=== PATIENT | female | born 1990 | race Caucasian/White ===

== ENCOUNTER 2019-04-26 12:20 | Emergency (ER) | payer SELFPAY ==
[~2019-04-26] VITALS: Ht 162.6 cm; Wt 56.7 kg
[2019-04-26] MEDS: IV NORMAL SALINE 500ML 500 ML IV SCH (12:45)
--- NOTE | 2019-04-26 12:55 | PHYS DOC ---
Past History Past Medical History: Hypothyroid (Bud's thyroiditis) Past Surgical History: (2) Smoking: Non-smoker Alcohol Use: None Drug Use: None Adult General Chief Complaint Chief Complaint: VAGINAL BLEEDING HPI HPI Patient is a 28-year-old female presents with vaginal bleeding that started approximately 45 minutes prior to arrival. She reports being approximately 12 weeks , she is 4 P 2011 with one elective termination and 2 C-sections. This is her second episode of vaginal bleeding this . She was evaluated at [place] approximately 2 weeks ago for a similar issue. Also noted to have a urinary tract infection at that time. Patient has been taking the antibiotics intermittently with her most recent dose of antibiotics being an hour prior to this onset of bleeding. Diagnosed with bacterial vaginosis and not given any treatment for that. She denies passing any tissue or clots. She has not seen her primary care/QUALITY ASSURANCE MONITOR physician since the vaginal bleeding episode. Nothing makes the symptoms better or worse.[] Review of Systems Review of Systems Constitutional: Denies fever or chills [] Eyes: Denies change in visual acuity, redness, or eye pain [] HENT: Denies nasal congestion or sore throat [] Respiratory: Denies cough or shortness of breath [] Cardiovascular: No chest pain or palpitations[] GI: Denies abdominal pain, nausea, vomiting, bloody stools or diarrhea [] : Denies dysuria or hematuria, see history of present illness [] Musculoskeletal: Denies back pain or joint pain [] Integument: Denies rash or skin lesions [] Neurologic: Denies headache, focal weakness or sensory changes [] Endocrine: Denies polyuria or polydipsia [] All other systems were reviewed and found to be within normal limits, except as documented in this note. Current Medications Current Medications Current Medications Medications (Trade) Dose Ordered Sig/Konrad Start Time Stop Time Status Last Admin Dose Admin Sodium Chloride 500 ml @ 500 mls/hr Q1H 04/26/19 12:45 UNV Physical Exam Physical Exam Constitutional: Well developed, well nourished, no acute distress, non-toxic appearance. [] HENT: Normocephalic, atraumatic, bilateral external ears normal, oropharynx moist, no oral exudates, nose normal. [] Eyes: PERRLA, EOMI, conjunctiva normal, no discharge. [] Neck: Normal range of motion, no tenderness, supple, no stridor. [] Cardiovascular:Heart rate regular rhythm, no murmur [] Lungs & Thorax: Bilateral breath sounds clear to auscultation [] Abdomen: Bowel sounds normal, soft, no tenderness, no masses, no pulsatile masses. exam performed with public works laborer: External genitalia: Urethra, [place]'s glands, and : Denies R all normal. Vaginal vault: Blood in the vault, no other discharge noted, no lacerations noted. Cervix: Nulliparous os, blood from the os, no cervical motion tenderness, closed[] Skin: Warm, dry, no erythema, no rash. [] Back: No tenderness, no CVA tenderness. [] Extremities: No tenderness, no cyanosis, no clubbing, ROM intact, no edema. [] Neurologic: Alert and oriented X 3, normal motor function, normal sensory function, no focal deficits noted. [] Psychologic: Affect normal, judgement normal, mood normal. [] Current Patient Data Vital Signs Vital Signs Date Time Temp Pulse Resp B/P (MAP) Pulse Ox O2 Delivery O2 Flow Rate FiO2 04/26/19 12:45 97.9 72 16 95/58 (70) 72 Room Air EKG EKG [] Radiology/Procedures Radiology/Procedures PROCEDURE: OB > 14 WKS W/TV Examination: OB > 14 WKS W/TV History: Vaginal bleeding. . Comparison/Correlation: None FINDINGS: Single living intrauterine gestation with breech lie is present. heart rate is 152 bpm. Uterus measures 12.5 cm x 9.4 cm x 8.3 cm. Cervical length is 4.6 cm normal amount of amniotic fluid is identified. Large subchorionic hemorrhage is present along the anterior aspect of the gestational sac with hypoechoic hemorrhage noted. measurements include: Biparietal diameter: 1.9 cm corresponding to 13 weeks 0 days. Femur length of 0.53 cm Head circumference of 7.07 cm corresponding to 12 weeks 6 days. Abdominal circumference of 5.8 cm corresponding to 12 weeks 4 days. Average ultrasound age corresponds to 12 weeks 6 days. EDC by average age is 11/02/2019. Gestational age by last menstrual period is 11 weeks 4 days. Cephalic index of 82.5. H/A ratio is 1.2. FL/BPD is 27.7. FL/ AC is 10.1. IMPRESSION: Single living intrauterine gestation with age by ultrasound corresponding to 12 weeks 6 days. This is 1 week 2 days greater than expected by last menstrual period. Breech lie. Large subchorionic hemorrhage.[] Course & Med Decision Making Course & Med Decision Making Pertinent Labs and Imaging studies reviewed. (See chart for details) ED course: Patient arrived, was placed in bed, and tolerated exam well. She was transferred to and from [facility] with any complications. Findings were discussed with the patient who voiced understanding. All questions were answered. Discussed her care with her QUALITY ASSURANCE MONITOR, Dr. Lozano, she has an appointment at 1400 tomorrow. She was discharged in improved condition. Medical decision makin-year-old female 4 PE to012 with what appears to be a threatened miscarriage given the subchorionic hemorrhage. No evidence of septic miscarriage, no evidence of missed miscarriage. No evidence of significant electrolyte abnormality. She received a dose of Rh immunoglobulin approximately 2 weeks ago when she had her last bleeding. Half life for Rh immunoglobulin is 28 days, she does not need another dose at this time.[] Dragon Disclaimer Dragon Disclaimer This electronic medical record was generated, in whole or in part, using a voice recognition dictation system. Departure Departure: Impression: Primary Impression: Threatened miscarriage Disposition: HOME, SELF-CARE Condition: IMPROVED Patient Instructions: Threatened Miscarriage Additional Instructions: Keep your appointment with Dr. Torres as scheduled tomorrow. Nothing in the vaginano tampons, no douching, no sexual intercourse until cleared by your QUALITY ASSURANCE MONITOR. Return to the ER if worsening pain, passing tissue, bleeding more than a pad an hour for 3 consecutive hours, or any other concerns. SIGRID ROB DO Apr 26, 2019 12:55
[2019-04-26 13:01] VITALS: BP 113/52
[2019-04-26 13:07] LABS: BASO # 0.1 x10^3/uL (0.0-0.2); BASO % 1 % (0-3); EOS # 0.2 x10^3/uL (0.0-0.7); EOS % 2 % (0-3); HEMATOCRIT 40.4 % (36.0-47.0); HEMOGLOBIN 13.8 g/dL (12.0-15.5); LYMPH # 2.5 x10^3/uL (1.0-4.8); LYMPH % 27 % (24-48); MEAN CORPUSCULAR HEMOGLOBIN 34 pg (25-35); MEAN CORPUSCULAR HGB CONC 34 g/dL (31-37); MEAN CORPUSCULAR VOLUME 99 fL (79-100); MONO # 0.7 x10^3/uL (0.0-1.1); MONO % 7 % (0-9); NEUT # 5.9 x10^3uL (1.8-7.7); NEUT % 63 % (31-73); PLATELET COUNT 209 x10^3/uL (140-400); RED BLOOD COUNT 4.09 x10^6/uL (3.50-5.40); RED CELL DISTRIBUTION WIDTH 12.5 % (11.5-14.5); WHITE BLOOD COUNT 9.4 x10^3/uL (4.0-11.0)
[2019-04-26 13:16] LABS: ALBUMIN 3.8 g/dL (3.4-5.0); ALBUMIN/GLOBULIN RATIO 1.3 (1.0-1.7); CALCIUM 8.8 mg/dL (8.5-10.1); CREATININE 0.6 mg/dL (0.6-1.0); GFR 120.8; POTASSIUM 3.7 mmol/L (3.5-5.1); TOTAL BILIRUBIN 0.4 mg/dL (0.2-1.0); TOTAL PROTEIN 6.8 g/dL (6.4-8.2)
--- NOTE | 2019-04-26 13:51 | RAD ---
Examination: OB > 14 WKS W/TV History: Vaginal bleeding. . Comparison/Correlation: None FINDINGS: Single living intrauterine gestation with breech lie is present. heart rate is 152 bpm. Uterus measures 12.5 cm x 9.4 cm x 8.3 cm. Cervical length is 4.6 cm normal amount of amniotic fluid is identified. Large subchorionic hemorrhage is present along the anterior aspect of the gestational sac with hypoechoic hemorrhage noted. measurements include: Biparietal diameter: 1.9 cm corresponding to 13 weeks 0 days. Femur length of 0.53 cm Head circumference of 7.07 cm corresponding to 12 weeks 6 days. Abdominal circumference of 5.8 cm corresponding to 12 weeks 4 days. Average ultrasound age corresponds to 12 weeks 6 days. EDC by average age is 11/02/2019. Gestational age by last menstrual period is 11 weeks 4 days. Cephalic index of 82.5. H/A ratio is 1.2. FL/BPD is 27.7. FL/ AC is 10.1. IMPRESSION: Single living intrauterine gestation with age by ultrasound corresponding to 12 weeks 6 days. This is 1 week 2 days greater than expected by last menstrual period. Breech lie. Large subchorionic hemorrhage. Electronically signed by: Robby Whyte MD (04/26/2019 1:48 PM) [id number]
[2019-04-26 14:45] LABS: BILIRUBIN,URINE NEG (NEG); CLARITY,URINE CLEAR; COLOR,URINE YELLOW; GLUCOSE,URINE NEG (NEG); NITRITE,URINE NEG (NEG); UROBILINOGEN,URINE 0.2 mg/dL (0.2 mg/dL)
[2019-04-26 14:46] LABS: BACTERIA,URINE 0 /HPF (0-FEW); SQUAMOUS EPITHELIAL CELL,UR OCC /LPF
== END 2019-04-26 15:15 | disposition home or self-care (01) ==
LOC: ER 12:20
DX: O20.0 Threatened abortion (principal); O23.41 Unspecified infection of urinary tract in pregnancy, first trimester; O99.281 Endocrine, nutritional and metabolic diseases complicating pregnancy, first trimester; E03.9 Hypothyroidism, unspecified; Z3A.12 12 weeks gestation of pregnancy
CPT/HCPCS: 36415; 76805; 76817; 80053; 81001; 84702; 85025; 86900; 86901; 87491; 87591; 99285; J7040; Q0111

== ENCOUNTER 2020-04-14 22:23 | Emergency (ER) | payer BC ==
[~2020-04-14] VITALS: Ht 162.6 cm; Wt 56.8 kg
[2020-04-14] MEDS ORDERED: ONDANSETRON PF 4 MG/2 ML VIAL. IVP ONE (22:45)
--- NOTE | 2020-04-14 22:57 | PHYS DOC ---
Past History Past Medical History: Hypothyroid Past Surgical History: Smoking: Non-smoker Alcohol Use: None Drug Use: None General Adult EDM: Chief Complaint: NAUSEA/VOMITING/DIARRHEA HPI: HPI: Patient is a 29 year old female who presents for evaluation of recurrent episodes of nausea vomiting and diarrhea. Symptoms been progressing with the past 1 day. Patient has some generalized abdominal cramping and discomfort. She did have chills at home as well as hot and cold flashes. 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 She does not have any cough or other similar respiratory symptoms. She is a mild to moderate distress on arrival. Patient denies any black, bloody or tarry stools Review of Systems: Review of Systems: Constitutional: Denies fever or chills Eyes: Denies change in visual acuity HENT: Denies nasal congestion or sore throat Respiratory: Denies cough or shortness of breath Cardiovascular: Denies chest pain or edema GI: has abdominal pain with nausea, vomiting, and diarrhea no bloody stools : Denies dysuria Musculoskeletal: Denies back pain or joint pain Integument: Denies rash Neurologic: Denies headache, focal weakness or sensory changes Endocrine: Denies polyuria or polydipsia Lymphatic: Denies swollen glands Psychiatric: Denies depression or anxiety Heart Score: Risk Factors: Risk Factors: DM, Current or recent (<one month) smoker, HTN, HLP, family history of CAD, obesity. Risk Scores: Score 0 - 3: 2.5% MACE over next 6 weeks - Discharge Home Score 4 - 6: 20.3% MACE over next 6 weeks - Admit for Clinical Observation Score 7 - 10: 72.7% MACE over next 6 weeks - Early Invasive Strategies Current Medications: Current Meds: Current Medications Medications (Trade) Dose Ordered Sig/Konrad Start Time Stop Time Status Last Admin Dose Admin Ondansetron HCl (Zofran) 4 mg 1X ONCE 04/14/20 22:45 04/14/20 22:46 DC Allergies: Allergies: Allergies Coded Allergies Type Severity Reaction Last Updated Verified No Known Drug Allergies 04/26/19 No Physical Exam: PE: Constitutional: Well developed, well nourished, mild to moderate acute distress. [] HENT: Normocephalic, atraumatic, bilateral external ears normal, oropharynx moist, no oral exudates, nose normal. [] Eyes: PERRL, EOMI, conjunctiva normal, no discharge. [] Neck: Normal range of motion, no tenderness. [] Cardiovascular:Heart rate regular rhythm, no murmur [] Lungs & Thorax: Bilateral breath sounds clear to auscultation [] Abdomen: Bowel sounds normal, soft, minimal generalized tenderness. [] Skin: Warm, dry, no erythema, no rash. [] Back: No tenderness. [] Extremities: No tenderness, no cyanosis, ROM intact, no edema. [] Neurologic: Alert and oriented X 3, normal motor function, normal sensory function, no focal deficits noted. [] Psychologic: Affect normal, judgement normal, mood anxious [] Current Patient Data: Labs: Laboratory Tests Test 04/14/20 22:58 04/14/20 23:00 Urine Collection Type Unknown Urine Color Carley Urine Clarity Hazy Urine pH 6.0 Urine Specific [place] >=1.030 Urine Protein Trace Urine Glucose (UA) Neg mg/dL Urine Ketones (Stick) 15 mg/dL Urine Blood Neg Urine Nitrite Neg Urine Bilirubin Neg Urine Urobilinogen Dipstick 0.2 mg/dL Urine Leukocyte Esterase Neg Urine RBC 0 /HPF Urine WBC Occ /HPF Urine Squamous Epithelial Cells Few /LPF Urine Bacteria Few /HPF Urine Mucus Slight /LPF White Blood Count 13.4 x10^3/uL Red Blood Count 4.42 x10^6/uL Hemoglobin 15.1 g/dL Hematocrit 44.5 % Mean Corpuscular Volume 101 fL Mean Corpuscular Hemoglobin 34 pg Mean Corpuscular Hemoglobin Concent 34 g/dL Red Cell Distribution Width 13.8 % Platelet Count 215 x10^3/uL Neutrophils (%) (Auto) 75 % Lymphocytes (%) (Auto) 13 % Monocytes (%) (Auto) 8 % Eosinophils (%) (Auto) 2 % Basophils (%) (Auto) 1 % Neutrophils # (Auto) 10.0 x10^3uL Lymphocytes # (Auto) 1.8 x10^3/uL Monocytes # (Auto) 1.1 x10^3/uL Eosinophils # (Auto) 0.3 x10^3/uL Basophils # (Auto) 0.1 x10^3/uL Sodium Level 139 mmol/L Potassium Level 3.5 mmol/L Chloride Level 101 mmol/L Carbon Dioxide Level 27 mmol/L Anion Gap 11 Blood Urea Nitrogen 15 mg/dL Creatinine 1.0 mg/dL Estimated GFR (Cockcroft-Gault) 66.5 BUN/Creatinine Ratio 15 Glucose Level 100 mg/dL Calcium Level 9.5 mg/dL Total Bilirubin 0.5 mg/dL Aspartate Amino Transf (AST/SGOT) 14 U/L Alanine Aminotransferase (ALT/SGPT) 24 U/L Alkaline Phosphatase 42 U/L Total Protein 7.8 g/dL Albumin 4.8 g/dL Albumin/Globulin Ratio 1.6 Lipase 109 U/L Serum Test, Qualitative Negative Current Medications Medications (Trade) Dose Ordered Sig/Konrad Route PRN Reason Start Time Stop Time Status Last Admin Dose Admin Ondansetron HCl (Zofran) 4 mg 1X ONCE IVP 04/14/20 22:45 04/14/20 22:46 DC 04/14/20 23:05 Iohexol (Omnipaque 300 Mg/ml) 75 ml 1X ONCE IV 04/14/20 23:45 04/14/20 23:46 UNV EKG: EKG: [] Radiology/Procedures: Radiology/Procedures: [place] [address] IMAGING REPORT Signed PATIENT: SHRUTHI CLEMENT ACCOUNT: [id number] : 1990 LOCATION: ER AGE: 29 SEX: F EXAM STATUS: REG ER ORD. PHYSICIAN: AMADO JORDAN DO REASON: abd pain, leukocytosis, N/V/D, OMNI 300, 75ml PROCEDURE: CT ABD PELV W/ IV CONTRST ONLY CT scan of the abdomen and pelvis with contrast 04/15/2020 CLINICAL HISTORY: Abdominal pain and leukocytosis. TECHNIQUE: After the intravenous administration of 75 cc of Omnipaque 300, contiguous, 5 mm axial sections were obtained through the abdomen and pelvis. One or more of the following individualized dose reduction techniques were utilized for this study: 1. Automated exposure control. 2. Adjustment of the mA and/or kV according to patient size. 3. Use of iterative reconstruction technique. FINDINGS: Images through the lung bases are within normal limits. The liver, spleen, pancreas, adrenal glands and kidneys are within normal limits. The abdominal aorta tapers normally. The gallbladder is contracted. No free fluid or free air is seen within the abdomen. There is no evidence of bowel obstruction. The appendix is well-visualized and is within normal limits. Images through the pelvis demonstrate the urinary bladder distended with urine. A 1.8 cm collapsing follicle is seen involving the right ovary. A 2.1 cm follicle is seen involving the left ovary. A small amount of free fluid is seen within the pelvis. A punctate calcification is seen within the pelvis consistent with a phlebolith. Minimal S-shaped curvature of the thoracolumbar spine is seen. IMPRESSION: Follicles are seen involving both ovaries, left greater than right. A small amount of free fluid is seen within the pelvis. No additional acute abnormality is seen. Electronically signed by: Bret Kirby MD (04/15/2020 1:01 AM) [id number] DICTATED AND SIGNED BY: BRET KIRBY MD DATE: 04/15/20100 CC: AMADO JORDAN DO; NIKKI DEL CASTILLO ~ [] Course & Med Decision Making: Course & Med Decision Making Pertinent Labs and Imaging studies reviewed. (See chart for details) [] Dragon Disclaimer: Dragon Disclaimer: This electronic medical record was generated, in whole or in part, using a voice recognition dictation system. 2345 stable, pain is more controlled at this time. Nausea is improved as well. In light of the leukocytosis and diffuse pain and diarrhea a CT scan abdomen pelvis was ordered with IV contrast. Differential diagnosis includes colitis versus other potential infectious cause of diarrhea 0114 stable, feeling much better at this time. No current complaints of abdominal pain. CT scan abdomen pelvis was unremarkable. Patient has an incidental finding of some ovarian follicles. Supportive care recommended. Patient has not had bloody diarrhea. No indication for antibiotics at this time Departure Departure: Impression: Primary Impression: Gastroenteritis Additional Impression: Dehydration Disposition: HOME/RESIDENCE PRIOR TO ADM Condition: STABLE Referrals: NIKKI DEL CASTILLO (PCP) Patient Instructions: Diarrhea, Nausea and Vomiting Additional Instructions: Drink plenty fluids, rest, take medication as directed, return if fever develops, bloody diarrhea etc. Scripts Ondansetron Hcl (ZOFRAN) 4 Mg Tablet 1 TAB PO PRN Q6HRS PRN for NAUSEA, #10 TAB Prov: AMADO JORDAN DO 04/15/20 Justification of Admission: Justification of Admission: Justification of Admission Dx: N/A AMADO JORDAN DO Apr 14, 2020 22:57
[2020-04-14 23:24] LABS: BASO # 0.1 x10^3/uL (0.0-0.2); BASO % 1 % (0-3); EOS # 0.3 x10^3/uL (0.0-0.7); EOS % 2 % (0-3); HEMATOCRIT 44.5 % (36.0-47.0); HEMOGLOBIN 15.1 g/dL (12.0-15.5); LYMPH # 1.8 x10^3/uL (1.0-4.8); LYMPH % 13 % (24-48); MEAN CORPUSCULAR HEMOGLOBIN 34 pg (25-35); MEAN CORPUSCULAR HGB CONC 34 g/dL (31-37); MEAN CORPUSCULAR VOLUME 101 fL (79-100); MONO # 1.1 x10^3/uL (0.0-1.1); MONO % 8 % (0-9); NEUT % 75 % (31-73); PLATELET COUNT 215 x10^3/uL (140-400); RED BLOOD COUNT 4.42 x10^6/uL (3.50-5.40); RED CELL DISTRIBUTION WIDTH 13.8 % (11.5-14.5); WHITE BLOOD COUNT 13.4 x10^3/uL (4.0-11.0)
[2020-04-14 23:30] LABS: CALCIUM 9.5 mg/dL (8.5-10.1); GFR 66.5; POTASSIUM 3.5 mmol/L (3.5-5.1)
[2020-04-14 23:34] LABS: BACTERIA,URINE FEW /HPF (0-FEW); BILIRUBIN,URINE NEG (NEG); CLARITY,URINE HAZY; COLOR,URINE AMBER; GLUCOSE,URINE NEG (NEG); NITRITE,URINE NEG (NEG); RBC,URINE 0 /HPF (0-2); UROBILINOGEN,URINE 0.2 mg/dL (0.2 mg/dL); WBC,URINE OCC /HPF (0-4)
[2020-04-14 23:35] LABS: SQUAMOUS EPITHELIAL CELL,UR FEW /LPF
[2020-04-14 23:36] LABS: ALBUMIN 4.8 g/dL (3.4-5.0); ALBUMIN/GLOBULIN RATIO 1.6 (1.0-1.7); TOTAL BILIRUBIN 0.5 mg/dL (0.2-1.0); TOTAL PROTEIN 7.8 g/dL (6.4-8.2)
[2020-04-14 23:50] LABS: PREG TEST PT QUAL NEGATIVE (NEG)
[2020-04-15] MEDS ORDERED: IOHEXOL 300 MG/ML 75 ML VIAL. IV ONE (01:00)
--- NOTE | 2020-04-15 01:07 | RAD ---
CT scan of the abdomen and pelvis with contrast 04/15/2020 CLINICAL HISTORY: Abdominal pain and leukocytosis. TECHNIQUE: After the intravenous administration of 75 cc of Omnipaque 300, contiguous, 5 mm axial sections were obtained through the abdomen and pelvis. One or more of the following individualized dose reduction techniques were utilized for this study: 1. Automated exposure control. 2. Adjustment of the mA and/or kV according to patient size. 3. Use of iterative reconstruction technique. FINDINGS: Images through the lung bases are within normal limits. The liver, spleen, pancreas, adrenal glands and kidneys are within normal limits. The abdominal aorta tapers normally. The gallbladder is contracted. No free fluid or free air is seen within the abdomen. There is no evidence of bowel obstruction. The appendix is well-visualized and is within normal limits. Images through the pelvis demonstrate the urinary bladder distended with urine. A 1.8 cm collapsing follicle is seen involving the right ovary. A 2.1 cm follicle is seen involving the left ovary. A small amount of free fluid is seen within the pelvis. A punctate calcification is seen within the pelvis consistent with a phlebolith. Minimal S-shaped curvature of the thoracolumbar spine is seen. IMPRESSION: Follicles are seen involving both ovaries, left greater than right. A small amount of free fluid is seen within the pelvis. No additional acute abnormality is seen. Electronically signed by: Bret Kirby MD (04/15/2020 1:01 AM) [id number]
[2020-04-15] MEDS ORDERED: CONTRAST GIVEN MC PRN (01:15)
[2020-04-15] MEDS ORDERED: ONDA4TAB7 PO (01:16)
[2020-04-15 01:35] VITALS: BP 106/68
== END 2020-04-15 01:39 | disposition home or self-care (01) ==
LOC: ER 22:23
DX: K52.9 Noninfective gastroenteritis and colitis, unspecified (principal); E86.0 Dehydration; R11.2 Nausea with vomiting, unspecified; R10.84 Generalized abdominal pain; E03.9 Hypothyroidism, unspecified; Z98.890 Other specified postprocedural states
CPT/HCPCS: 36415; 74177; 80053; 81001; 83690; 84703; 85025; 96374; 99285; J2405; Q9967

== ENCOUNTER 2021-06-22 00:44 | Emergency (ER) | payer BC ==
[~2021-06-22] VITALS: Ht 162.6 cm; Wt 65.1 kg
[~2021-06-22 00:44] MED LIST: ONDA4TAB7 PO
--- NOTE | 2021-06-22 01:08 | PHYS DOC ---
Past History Past Medical History: Hypothyroid, Other Additional Past Medical Histor: hashimotos disease Past Surgical History: Smoking: Non-smoker Alcohol Use: Occasionally Drug Use: None Adult General Chief Complaint Chief Complaint: VAGINAL BLEEDING HPI HPI Patient is a 30-year-old female, G4, P5 at 10 weeks, with a history of multiple C-sections and a who presents to the emergency department with a chief complaint of vaginal bleeding. States it started yesterday, is bright red but light and is there when she wipes. Denies any abdominal cramping, pain, nausea, vomiting. Denies any dysuria, hematuria or blood in the stool. Denies any vaginal discharge/fluid loss, genital lesions or history of STIs. States she has had an ultrasound a few weeks ago which was normal. Denies recent traumas, travels, illnesses, fevers, chest pain, shortness of breath. States he is eating and drinking normally for her. States he is making urine and stool normally for her. Review of Systems Review of Systems Review of systems otherwise unremarkable except noted in HPI Allergies Allergies Allergies Coded Allergies Type Severity Reaction Last Updated Verified No Known Drug Allergies 04/26/19 No Physical Exam Physical Exam Constitutional: Well developed, well nourished, no acute distress, non-toxic appearance. [] HENT: Normocephalic, atraumatic, bilateral external ears normal, oropharynx moist, no oral exudates, nose normal. [] Eyes: conjunctiva normal, no discharge. [] Neck: Normal range of motion, no tenderness, supple, no stridor. [] Cardiovascular:Heart rate regular rhythm, no murmur [] Lungs & Thorax: Bilateral breath sounds clear to auscultation [] Abdomen: soft, no tenderness, no masses, no pulsatile masses. : No obvious lesions or injuries on outer labia, no vaginal tenderness on digital exam, no blood in the vagina or vaginal vault, no cervical motion tenderness, cervix is closed [] Skin: Warm, dry, no erythema, no rash. [] Back: no CVA tenderness. [] Extremities: No tenderness, no cyanosis, no clubbing, ROM intact, no edema. [] Neurologic: Alert and oriented X 3, normal motor function, normal sensory function, no focal deficits noted. [] Psychologic: Affect normal, judgement normal, mood normal. [] EKG EKG [] Radiology/Procedures Radiology/Procedures [] Heart Score C/O Chest Pain: No Risk Factors: Risk Factors: DM, Current or recent (<one month) smoker, HTN, HLP, family history of CAD, obesity. Risk Scores: Risk Factors: DM, Current or recent (<one month) smoker, HTN, HLP, family history of CAD, obesity. Course & Med Decision Making Course & Med Decision Making Patient is a 30-year-old female, at 10 weeks who presents with vaginal bleeding Vital signs not concerning. Physical exam noted above. Cervix closed. hCG less than 3000 which is low for someone at 8 to 10 weeks Ultrasound shows no heart tones consistent with demise. Discussed all findings with family. Called patient's PIPELINE ENGINEER to make them aware of findings. Patient is PIPELINE ENGINEER wanted us to relay that they want to see her first thing in the morning and for her to call them and/or come in as soon as they open. Patient declined RhoGam, stating she will do it in the morning when she gets to her PIPELINE ENGINEER. Gave return precautions to the ED. Patient grateful, verbalized understanding and agreed with plan of discharge. Dragon Disclaimer Dragon Disclaimer This electronic medical record was generated, in whole or in part, using a voice recognition dictation system. Departure Departure: Impression: Primary Impression: Vaginal bleeding affecting early Disposition: 01 HOME / SELF CARE / HOMELESS Condition: STABLE Referrals: NIKKI DEL CASTILLO (PCP) Patient Instructions: Vaginal Bleeding During , First Trimester Additional Instructions: Thank you for coming into the emergency department tonight and allowing us to take care of you. Please read the attached information. As we discussed, we called and talked to to Dr. Berumen who is a partner of your PIPELINE ENGINEER Dr. Mooney and made them aware of what was going on and they would like to see you in the morning in the clinic. Please be sure to call them or go by first thing in the morning when they open to discuss your ED visit, your ultrasound and need for repeat ultrasound or further evaluation and treatment. As we discussed please come back to the emergency department immediately with new or concerning symptoms. You chose to hold on the RhoGam here in stated you would prefer to get it in the morning when you see your PIPELINE ENGINEER. AMADO CHERRY MD Jun 22, 2021 01:08
[2021-06-22 02:02] LABS: CLARITY,URINE CLEAR; COLOR,URINE YELLOW
[2021-06-22 02:03] LABS: BACTERIA,URINE 0 /HPF (0-FEW); BILIRUBIN,URINE NEG (NEG); GLUCOSE,URINE NEG (NEG); NITRITE,URINE NEG (NEG); RBC,URINE OCC /HPF (0-2); SQUAMOUS EPITHELIAL CELL,UR FEW /LPF; UROBILINOGEN,URINE 0.2 mg/dL (0.2 mg/dL); WBC,URINE OCC /HPF (0-4)
[2021-06-22 02:04] LABS: AMORPHOUS SEDIMENT,UR PRESENT /HPF
[2021-06-22] MEDS ORDERED: PNV1TABL78 PO (02:14)
[2021-06-22] MEDS ORDERED: LEVO75TA PO (02:14)
[2021-06-22 04:00] VITALS: BP 110/69
--- NOTE | 2021-06-22 04:28 | RAD ---
EXAM: OBSTETRIC ULTRASOUND, <14 WEEKS. HISTORY: Vaginal bleeding in . COMPARISON: None. FINDINGS: Sonographic evaluation of the pelvis was performed transabdominally and transvaginally. The uterus is retroverted and measures 7.4 x 6.2 x 5.5 cm. There is a single intrauterine gestation m easuring 8 weeks 0 days. No heart motion is identified. No yolk sac is visualized. The gestatio nal sac is regular. There is no subchorionic collection. The right ovary measures 2.9 x 1.6 x 1.4 cm. The left ovary measures 2.8 x 2.2 x 2.1 cm. There is nor mal Doppler flow bilaterally. There is no adnexal mass. There is no significant free fluid. IMPRESSION: 1. No heart tones are identified, consistent with demise. Ongoing follow-up is gayla dRenuka Electronically signed by: Partha Mcdaniel MD (06/22/2021 4:25 AM) [facility]
== END 2021-06-22 04:39 | disposition home or self-care (01) ==
LOC: ER 00:44
DX: O46.91 Antepartum hemorrhage, unspecified, first trimester (principal); Z3A.08 8 weeks gestation of pregnancy; Z98.890 Other specified postprocedural states
CPT/HCPCS: 36415; 76817; 81001; 84702; 99284

== ENCOUNTER 2021-11-22 11:14 | Emergency (ER) | payer BC ==
[~2021-11-22] VITALS: Ht 162.6 cm; Wt 65.1 kg
[2021-11-22 11:14] VITALS: BP 127/78
[~2021-11-22 11:14] MED LIST changes: +LEVO75TA PO; +PNV1TABL78 PO
--- NOTE | 2021-11-22 11:21 | PHYS DOC ---
Past History Past Medical History: Hypothyroid, Other Additional Past Medical Histor: hashimotos disease Past Surgical History: Additional Past Surgical Histo: x3 Smoking: Non-smoker Alcohol Use: None Drug Use: None Adult General HPI HPI Patient is a 31-year-old female presenting for dysuria. Onset was 4 days ago without any obvious event, trauma, ingestion, exposure, concerning sexual contact or other noteworthy event. Nothing known makes better, urinating makes worse. Pain is sharp and burning when she pees with mild suprapubic tenderness per patient. History of three c-sections otherwise no other intra-abdominal surgeries. Denies any fever, flank pain, vaginal discharge. Admits she has been taking Azo and leftover metronidazole without symptomatic relief prompting her to come in for evaluation today Review of Systems Review of Systems Fourteen body systems of review of systems have been reviewed. See HPI for pertinent positives and negative responses, other vidal all other systems are negative, non-pertinent or non-contributory Allergies Allergies Allergies Coded Allergies Type Severity Reaction Last Updated Verified No Known Drug Allergies 04/26/19 No Physical Exam Physical Exam Constitutional: Well developed, well nourished, no acute distress, non-toxic appearance. HENT: Normocephalic, atraumatic, bilateral external ears normal, oropharynx moist, no oral exudates, nose normal. Eyes: PERRLA, EOMI, conjunctiva normal, no discharge. Neck: Normal range of motion, no tenderness, supple, no stridor. Cardiovascular: Heart rate regular, sinus rhythm, no murmurs rubs or gallops Lungs & Thorax: Bilateral breath sounds clear to auscultation Abdomen: Bowel sounds normal, soft, mild suprapubic tenderness with palpation without guarding or rebound, no masses, no pulsatile masses. Nonsurgical abdomen, no peritoneal signs Skin: Warm, dry, no erythema, no rash. Back: No tenderness, no CVA tenderness. Extremities: No tenderness, no cyanosis, no clubbing, ROM intact, no edema. Neurologic: Alert and oriented X 3, grossly normal motor & sensory function, no focal deficits noted. Psychologic: Odd affect, anxious mood Current Patient Data Vital Signs Vital Signs Date Time Temp Pulse Resp B/P (MAP) Pulse Ox O2 Delivery O2 Flow Rate FiO2 11/22/21 11:14 84 16 127/78 (94) 98 Room Air Vital Signs Date Time Temp Pulse Resp B/P (MAP) Pulse Ox O2 Delivery O2 Flow Rate FiO2 11/22/21 11:14 84 127/78 (94) 98 11/22/21 11:14 16 Room Air EKG EKG [] Radiology/Procedures Radiology/Procedures [] Heart Score C/O Chest Pain: No Risk Factors: Risk Factors: DM, Current or recent (<one month) smoker, HTN, HLP, family history of CAD, obesity. Risk Scores: Risk Factors: DM, Current or recent (<one month) smoker, HTN, HLP, family history of CAD, obesity. Course & Med Decision Making Course & Med Decision Making ABCs unremarkable HPI and comprehensive physical exam nonconcerning for any emergent or surgical i ssues No indication for further diagnostic ER workup, intervention, or hospitalization at this time Patient to be treated for simple UTI with Macrobid. Close PCP follow-up recommended Viktoriya Disclaimer Viktoriya Disclaimer This electronic medical record was generated, in whole or in part, using a voice recognition dictation system. Departure Departure: Impression: Primary Impression: UTI (urinary tract infection) Disposition: HOME / SELF CARE / HOMELESS Condition: STABLE (ERASED) Referrals: NIKKI DEL CASTILLO (PCP) Patient Instructions: Urinary Tract Infection Additional Instructions: You were seen for a urinary tract infection. Please continue to take the antibiotics as prescribed. You should return to the ED if you develop worsening pain, fever, flank pain, or any other new or concerning symptoms. Follow up with primary care for further management if ongoing symptoms. Scripts Nitrofurantoin Monohyd/M-Cryst (MACROBID 100 MG CAPSULE) 100 Mg Capsule 1 CAP PO BID for UTI for 5 Days, #10 CAP 0 Refills Prov: SAGRARIO MONROE DO 11/22/21 SAGRARIO MONROE DO Nov 22, 2021 11:21
[2021-11-22 11:51] LABS: CLARITY,URINE HAZY; COLOR,URINE YELLOW; GLUCOSE,URINE NEG (NEG)
[2021-11-22 11:52] LABS: BACTERIA,URINE FEW /HPF (0-FEW); NITRITE,URINE POS (NEG); SQUAMOUS EPITHELIAL CELL,UR MANY /LPF; UROBILINOGEN,URINE 0.2 mg/dL (0.2 mg/dL); WBC,URINE 20-40 /HPF (0-4)
[2021-11-22] MEDS ORDERED: NITR100C62 PO (12:00)
== END 2021-11-22 12:03 | disposition home or self-care (01) ==
LOC: ER 11:14
DX: N39.0 Urinary tract infection, site not specified (principal); E03.9 Hypothyroidism, unspecified; Z98.890 Other specified postprocedural states
CPT/HCPCS: 81001; 81025; 87086; 99283